=== PATIENT | female | born 1990 | race Caucasian/White ===

== ENCOUNTER 2016-12-30 11:58 | Emergency (ER) | payer OTHER ==
--- NOTE | ~2016-12-30 | EKG ---
PATIENT: LEONOR STEWART UNIT #: [id number] Ventricular Rate: 75 BPM Atrial Rate: 75 BPM P-R Interval: 138 ms QRS Duration: 66 ms Q-T Interval: 408 ms QTC Calculation(Bezet): 455 ms P [place]: -8 degrees Calculated R [place]: 34 degrees Calculated T [place]: 34 degrees Diagnosis Line: Normal sinus rhythm with sinus arrhythmia Diagnosis Line: Normal ECG Diagnosis Line: No previous ECGs available Diagnosis Line: Confirmed by AUSTIN PATEL MD ([id number]) on Diagnosis Line: 12/31/2016 3:30:15 PM INTERPRETING MD: JORGE CASTRO
--- NOTE | ~2016-12-30 | CR63 ---
[facility]. [facility] A Service of [facility] RADIOLOGY TEXT RESULTS PATIENT: LEONOR STEWART LOCATION: SED : [birth year] UNIT #: [id number] AGE: [address]: Vitaliy Gary MD SEX: F ORDER DR: [id number] [place] [id number] E MR#: [id number] Acc #: [id number] NAME: LEONOR STEWART : 1990 SEX: F STUDY DATE/TIME: 12/30/2016 12:04 UNIT: SED ROOM: STUDY DESCRIPTION: CR Chest 2 View Attending Physician: Vitaliy Gary M.D. Ordering Physician: Vitaliy Gary M.D. Primary Care Physician: Faustina Damon M.D. MEDICAL IMAGING REPORT This report is preliminary unless electronic signature is present. EXAM Chest 2 views, 12/30/2016 INDICATIONS 26-year-old female with shortness of air, right-sided chest pain and nausea symptoms since 0800 hours. TECHNIQUE Two-view chest COMPARISON 01/27/2013 FINDINGS Cardiac silhouette unremarkable. Vascularity is normal. Lungs are clear. No pneumothorax. IMPRESSION 1. Negative chest. No change. Dictated by... Dick Kahn M.D. THIS IS AN ELECTRONICALLY VERIFIED REPORT Dick Kahn M.D. at 12/31/2016 7:38 AM BRETT/kenia TD: 12/30/2016 19:00 JOB #: [id number] MEDICAL IMAGING REPORT
[~2016-12-30 11:58] MED LIST: AMOXICILLIN875 MG PO; BENZONATATE PO; MEDROL4 MG/DOSE- PO; NO MEDICATIONS; PRENATAL VITAMI1 TA3 PO; PYRIDIUM PO; ROBITUSSIN A-C S5 ML PO; TESSALON200 MG PO; VIBRAMYCIN100 M1 PO; ZITHROMAX PO; ZITHROMAX1 G/PKT PO; ZOFRAN PO
== END 2016-12-30 13:40 | disposition home or self-care (01) ==
LOC: SED 11:58
DX: M94.0 Chondrocostal junction syndrome [Tietze] (principal); F17.210 Nicotine dependence, cigarettes, uncomplicated
CPT/HCPCS: 71020; 93005; 99284